=== PATIENT | female | born 1965 | race African-American/Black ===

== ENCOUNTER 2019-08-26 10:55 | Emergency (ER) | payer MEDICAID ==
[~2019-08-26] VITALS: Ht 165.1 cm; Wt 74.1 kg
[2019-08-26] MEDS: HYDROCODONE/ACETAMINOPHEN 5/325MG TABLET PO ONE ×2 (14:36→14:44)
[2019-08-26 15:00] VITALS: BP 150/60
== END 2019-08-26 15:03 | disposition home or self-care (01) ==
LOC: ER 10:55
DX: R51 Headache (principal); K08.89 Other specified disorders of teeth and supporting structures
CPT/HCPCS: 99283

== ENCOUNTER 2021-05-19 11:01 | Emergency (ER) | payer MEDICAID ==
[~2021-05-19] VITALS: Ht 170.2 cm; Wt 80.0 kg
[2021-05-19 11:46] VITALS: BP 125/83
[2021-05-19] MEDS ORDERED: BACITRACIN ZINC OINT UDPKT TOP ONE (12:30)
[2021-05-19] MEDS ORDERED: ACETAMINOPHEN 325MG TABLET PO ONE (12:30)
[2021-05-19] MEDS ORDERED: BO1 TP (13:50)
== END 2021-05-19 14:20 | disposition home or self-care (01) ==
LOC: ER 11:01
DX: M79.604 Pain in right leg (principal)
CPT/HCPCS: 99282; J7040

== ENCOUNTER 2022-01-04 11:19 | Inpatient (IN) | payer MEDICAID ==
[~2022-01-04] VITALS: Ht 165.1 cm; Wt 81.6 kg
[~2022-01-04 11:19] MED LIST: BO1 TP
[2022-01-04] MEDS ORDERED: KETOROLAC 30MG/ML VIAL IV ONE (12:45)
[2022-01-04] MEDS ORDERED: DEXAMETHASONE 4MG/ML 1ML VIAL IM ONE (12:45)
[2022-01-04] MEDS ORDERED: OXYCODONE HCL/ACETAMINOPHEN 5/325MG TABLET PO ONE (12:45)
[2022-01-04] MEDS ORDERED: KETOROLAC 60MG/2ML VIAL IM ONE (13:00)
[2022-01-04] MEDS ORDERED: ACETAMINOPHEN 325MG TABLET PO ONE (13:45)
[2022-01-04] MEDS ORDERED: MORPHINE SULFATE 4 MG/ML CPJ (NOT FOR IM USE) IV STA (13:59)
[2022-01-04 14:32] LABS: BASOPHILS % 0.3 % (0.0-2.0); EOSINOPHILS % 1.6 % (0.0-5.0); HEMATOCRIT. 41.3 % (36.0-48.0); HEMOGLOBIN. 13.5 g/dL (12.0-16.0); LYMPHOCYTES % 32.4 % (20.0-50.0); MEAN CORPUSCULAR HEMOGLOBIN 27.3 pg (28.0-32.0); MEAN CORPUSCULAR VOLUME 83.4 fL (81.0-99.0); MEAN PLATELET VOLUME 7.8 fl (7.4-10.4); MONOCYTES % 4.7 % (2.0-8.0); PLATELET 241 x1000/uL (130-400); RED BLOOD CELL COUNT 4.95 mill/uL (4.2-5.4); RED CELL DISTRIBUTION WIDTH 13.5 % (11.6-14.6)
[2022-01-04 14:38] LABS: CHLORIDE 104 mEq/L (98-107)
[2022-01-04] MEDS ORDERED: MORPHINE SULFATE 4 MG/ML CPJ (NOT FOR IM USE) IV NR (15:28)
[2022-01-04] MEDS ORDERED: LORAZEPAM 0.5MG TABLET PO PRN (15:45)
[2022-01-04] MEDS ORDERED: IPRATROPIUM/ALBUTEROL 0.5-3(2.5)MG/3ML NEB HHN PRN (15:45)
[2022-01-04] MEDS ORDERED: HYDROCODONE/ACETAMINOPHEN 5/325MG TABLET PO PRN (15:45)
[2022-01-04] MEDS ORDERED: DOCUSATE SODIUM 100MG CAPSULE PO PRN (15:45)
[2022-01-04] MEDS ORDERED: ACETAMINOPHEN 325MG TABLET PO PRN ×2 (15:45)
[2022-01-04] MEDS ORDERED: CLONIDINE 0.1MG TABLET PO PRN (15:45)
[2022-01-04 16:00] VITALS: BP 99/58
[2022-01-04] MEDS ORDERED: POTASSIUM CHLORIDE 20MEQ TABLET SR PO SCH (16:00)
[2022-01-04] MEDS ORDERED: NALOXONE HCL 0.4MG/ML VIAL IV PRN (16:15)
[2022-01-04] MEDS ORDERED: *PATIENT'S OWN MEDICATION STORAGE XX SCH (16:45)
[2022-01-04 17:22] VITALS: BP 135/83
[2022-01-04] MEDS ORDERED: MUPI15CR11 TP (18:00)
[2022-01-04] MEDS ORDERED: OMEP20TA2 PO (18:00)
[2022-01-04] MEDS ORDERED: DICL100G31 TP (18:00)
[2022-01-04] MEDS ORDERED: CEPH500C2 PO (18:00)
[2022-01-04] MEDS ORDERED: TRAM50TA3 PO (18:00)
[2022-01-04 20:00] VITALS: BP 130/82
[2022-01-04] MEDS: MORPHINE SULFATE 2 MG/ML CPJ (NOT FOR IM USE) IV PRN (20:43)
[2022-01-05] VITALS: BP 140/71
[2022-01-05 04:00] VITALS: BP 124/82
[2022-01-05] MEDS: MORPHINE SULFATE 2 MG/ML CPJ (NOT FOR IM USE) IV PRN ×3 (05:50→15:49)
[2022-01-05 08:00] VITALS: BP 119/74
[2022-01-05] MEDS ORDERED: PNEUMOCOCCAL 23-VAL P-SAC VAC 0.5 ML IM ONE (08:00)
[2022-01-05 16:00] VITALS: BP 143/73
[2022-01-05] MEDS: MORPHINE SULFATE 4 MG/ML CPJ (NOT FOR IM USE) IV PRN (18:01)
[2022-01-05 20:00] VITALS: BP 144/78
[2022-01-05] MEDS: HYDROCODONE/ACETAMINOPHEN 10/325MG TABLET PO PRN (21:03)
[2022-01-06] VITALS (7 sets, daily range): BP systolic 98–163; BP diastolic 58–84
[2022-01-06] MEDS: MORPHINE SULFATE 2 MG/ML CPJ (NOT FOR IM USE) IV PRN ×2 (00:28→00:30)
[2022-01-06] MEDS: MORPHINE SULFATE 4 MG/ML CPJ (NOT FOR IM USE) IV PRN ×2 (07:54→22:42)
[2022-01-06] MEDS ORDERED: NALO4SPR BOTHNSTRLS (08:50)
[2022-01-06] MEDS ORDERED: HYDR-4009 MT (08:50)
[2022-01-06] MEDS ORDERED: TRAM50TA3 MT (08:50)
[2022-01-06] MEDS ORDERED: ACET650T37 MT (08:50)
[2022-01-06] MEDS: HYDROCODONE/ACETAMINOPHEN 10/325MG TABLET PO PRN ×2 (09:29→18:41)
[2022-01-06] MEDS: ONDANSETRON HCL 4MG/2ML INJ IV PRN ×2 (12:32→18:47)
[2022-01-06] MEDS ORDERED: METOCLOPRAMIDE HCL 10MG/2ML VIAL IV PRN (16:30)
[2022-01-06] MEDS ORDERED: METOCLOPRAMIDE HCL 10MG/2ML VIAL IV SCH (18:00)
[2022-01-07] VITALS: BP 128/70
[2022-01-07 04:00] VITALS: BP 130/74
[2022-01-07] MEDS: HYDROCODONE/ACETAMINOPHEN 10/325MG TABLET PO PRN (05:21)
[2022-01-07 08:00] VITALS: BP 134/88
== END 2022-01-07 08:22 | disposition home or self-care (01) | DRG 347 ==
LOC: ER 11:19 → 6EST 14:07 → EDBEDREQ 14:13 → EDBEDREQTM 14:13 → ENRESERV 15:06 → 6EST 21:08
PROVIDERS: ADMIT Internal Medicine; ATTEND Internal Medicine
DX: M51.26 Other intervertebral disc displacement, lumbar region (principal); E87.6 Hypokalemia; M54.30 Sciatica, unspecified side; M51.36 Other intervertebral disc degeneration, lumbar region; M51.37 Other intervertebral disc degeneration, lumbosacral region; Z79.899 Other long term (current) drug therapy
CPT/HCPCS: 36415; 72100; 72148; 80053; 85025; 97161; 99285; J1100; J1885; J2270; J2405; J2765

== ENCOUNTER 2024-11-07 10:54 | Emergency (ER) | payer MEDICAID, OTHER ==
[~2024-11-07] VITALS: Ht 165.1 cm; Wt 80.0 kg
[~2024-11-07 10:54] MED LIST changes: +ACET-3163 MT; +CEPH500C2 PO; +DICL100G58 TP; +HYDR-4009 MT; +MUPI15CR11 TP; +NALO4SPR BOTHNSTRLS; +OMEP20TA23 PO; +TRAM50TA3 MT
[2024-11-07 11:03] VITALS: O2SAT 99
[2024-11-07 11:42] LABS: BASOPHILS % 0.4 % (0.0-2.0); EOSINOPHILS % 1.1 % (0.0-5.0); HEMATOCRIT. 40.6 % (36.0-48.0); HEMOGLOBIN. 13.2 g/dL (12.0-16.0); LYMPHOCYTES % 36.5 % (20.0-50.0); MEAN CORPUSCULAR HEMOGLOBIN 27.6 pg (28.0-32.0); MEAN CORPUSCULAR HGB CONC 32.4 g/dL (31.0-37.0); MEAN CORPUSCULAR VOLUME 85.1 fL (81.0-99.0); MEAN PLATELET VOLUME 7.7 fl (7.4-10.4); MONOCYTES % 5.7 % (2.0-8.0); NEUTROPHILS % 56.3 % (40.0-76.0); PLATELET 221 x1000/uL (130-400); RED BLOOD CELL COUNT 4.77 mill/uL (4.2-5.4); RED CELL DISTRIBUTION WIDTH 14.1 % (11.6-14.6); WHITE BLOOD COUNT 6.5 x1000/uL (4.5-11.0)
[2024-11-07] MEDS: IBUPROFEN 600MG TABLET PO ONE (11:50)
[2024-11-07 11:56] LABS: CHLORIDE 105 mEq/L (98-107); POTASSIUM 3.9 mEq/L (3.5-5.1); SODIUM 139 mEq/L (136-145)
[2024-11-07 11:57] LABS: CALCIUM 9.3 mg/dL (8.7-10.4); CARBON DIOXIDE 26 mEq/L (21-32)
[2024-11-07 12:02] LABS: CREATININE 0.8 mg/dL (0.6-1.0); GLUCOSE 84 mg/dL (70-105); UREA NITROGEN BLOOD 19 mg/dL (9-23)
[2024-11-07 12:20] LABS: TROPONIN I HIGH SENSITIVITY < 4 ng/L (3.0-34)
[2024-11-07 13:10] VITALS: BP 105/76; PULSE 74; RESP 16; TEMP 36.9; O2SAT 100
[2024-11-07] MEDS: KETOROLAC 30MG/ML VIAL IV STA (13:10)
== END 2024-11-07 13:11 | disposition home or self-care (01) ==
LOC: ER 10:54
DX: R07.89 Other chest pain (principal)
CPT/HCPCS: 99285; 96374; 71045; 80048; 85025; 84484; 36415; 93005; J1885